=== PATIENT | female | born 1985 ===

== ENCOUNTER 2018-03-12 20:58 | Emergency (ER) | payer MEDICAID, SELFPAY ==
[2018-03-12 21:13] VITALS: BP 109/73; PULSE 91; RESP 18; TEMP 36.8; O2SAT 97
--- NOTE | 2018-03-12 21:20 | W.ED.GENAD ---
Discharge Plan Disposition Patient Disposition: HOME Condition: Stable Discharge Details Chief Complaint: Sorethroat Clinical Impression: Acute streptococcal pharyngitis Primary Care Provider: Unknown,Unknown ED Provider: Nikolai Ruth Home Meds and New Rx's Prescriptions: New amoxicillin 500 mg capsule 500 mg PO BID Qty: 19 RF: 0 Discharge Instructions Instructions: Pharyngitis (ED) Additional Instructions: Please take antibiotic as prescribed and until fully gone. Return to the emergency department for any new or significant domes of the [place] with primary care provider for reassessment as needed. Stand Alone Forms: Work Release Referrals: Primary Care Provider [Outside] (As needed for reassessment) Discharge Data Discharge Date/Time-TO BE ENTERED AT DEPARTURE: 03/12/18 22:03 Medical Decision Making Patient presenting the emergency department for chief complaint of sore throat, earache, sinus pressure. Patient states symptoms started 3 days ago. Patient's daughter was diagnosed with strep throat last week and she is concerned about having similar symptoms. She does state some fever and chills but denies any cough or runny nose. Physical exam does show some tonsillary erythema, mild hypertrophy, and left-sided exudates. Patient has some clear fluid present behind right TM otherwise exam is unremarkable. Patient has no signs of meningitis, peritonsillar or retropharyngeal abscess, airway is patent no other emergent findings noted at this time. patient had a rapid strep testing which was performed and returned positive result. Did discuss with patient risk versus benefit of antibiotic therapy which at this time we agreed upon antibiotics. Patient placed on amoxicillin 500 mg twice daily for 10 days. Patient encouraged to return for any new or worsening symptoms otherwise follow-up with primary care as needed for reassessment. After discussion of diagnosis and plan of care patient has no further needs, questions, or concerns and states clear understanding to return to the emergency department for any worsening symptoms. HPI General Mode of arrival: ambulatory. Date/Time Provider Initiated Documentation: 03/12/18 21:03. Limitations to Documentation: no limitations. Information obtained by: patient and RN notes reviewed. History of Present Illness 32 year old F presents to the emergency department with the chief complaint of Sore throat, described as moderate, with intensity rated at 6. Quality is described as aching and other (Generalized body), and is localized to the mouth (Sore Throat). Patient started experiencing this day(s) (3) and it has been constant. No relieving factors improve symptom(s), No exacerbating factors reported . Patient did receive the following treatments prior to arrival, other ([id number]-[id number] Tylenol cold) Related Data Home Medications Medication Instructions Recorded Confirmed amoxicillin 500 mg PO BID #19 cap 03/12/18 Previous Rx's Medication Instructions Recorded amoxicillin 500 mg PO BID #19 cap 03/12/18 Allergies Allergy/AdvReac Type Severity Reaction Status Date / Time No Known Allergies Allergy Unverified 03/12/18 21:26 Review of Systems Constitutional Reports chills, Reports fever(s), Denies headache(s) and Reports malaise ENT Reports as per HPI, Denies change in voice, Denies dysphagia, Reports otalgia, Denies headache(s), Denies lip swelling, Reports nasal congestion, Denies nasal discharge, Reports odynophagia, Reports sinus pressure, Reports sore throat, Denies throat swelling and Denies tongue swelling Cardiovascular Denies chest pain Respiratory Denies chest congestion and Denies cough Gastrointestinal Denies dysphagia and Reports odynophagia Neurologic Denies headache(s) Allergic/Immunologic Denies lip swelling, Denies throat swelling and Denies tongue swelling [facility] Social History Smoking/Tobacco Use Status: Current every day Exam Const General: cooperative, healthy appearing, comfortable, no acute distress and not ill appearing Orientation: alert, awake and oriented x3 HENMT Head: normal to inspection and normocephalic Ears: hearing grossly normal bilaterally, external ears normal, TM normal on the left, mastoids normal and TM abnormal with fluid behind the TM on the right (clear) and with loss of landmarks on the right General nose exam: external nose normal and nares normal Face and sinus: normal facial exam and sinuses nontender Mouth: oral mucosae normal, lip normal, tongue normal, no audible dysphonia, no drooling and no trismus Throat: uvula midline, abnormal tonsil on the left exudates and bilaterally erythema and hypertrophy 1+ and no peritonsillar masses Neck Neck: normal visual inspection, full ROM, no lymphadenopathy and no meningeal signs Resp Effort & Inspection: normal respiratory effort, able to speak in complete sentences and no stridor Auscultation: clear to auscultation bilaterally Cardio Rate: regular rate Rhythm: regular rhythm Heart Sounds: S1 normal and S2 normal Skin General skin exam: no rashes or lesions noted
--- NOTE | 2018-03-12 21:26 | ED.GENADUL_ITS ---
Discharge Plan Disposition Patient Disposition: HOME Condition: Stable Discharge Details Chief Complaint: Sorethroat Clinical Impression: Acute streptococcal pharyngitis Primary Care Provider: Unknown,Unknown ED Provider: Nikolai Ruth Home Meds and New Rx's Prescriptions: New amoxicillin 500 mg capsule 500 mg PO BID Qty: 19 RF: 0 Discharge Instructions Instructions: Pharyngitis (ED) Additional Instructions: Please take antibiotic as prescribed and until fully gone. Return to the emergency department for any new or significant domes of the [place] with primary care provider for reassessment as needed. Stand Alone Forms: Work Release Referrals: Primary Care Provider [Outside] (As needed for reassessment) Discharge Data Discharge Date/Time-TO BE ENTERED AT DEPARTURE: 03/12/18 22:03 Medical Decision Making Patient presenting the emergency department for chief complaint of sore throat, earache, sinus pressure. Patient states symptoms started 3 days ago. Patient's daughter was diagnosed with strep throat last week and she is concerned about having similar symptoms. She does state some fever and chills but denies any cough or runny nose. Physical exam does show some tonsillary erythema, mild hypertrophy, and left-sided exudates. Patient has some clear fluid present be hind right TM otherwise exam is unremarkable. Patient has no signs of meningitis, peritonsillar or retropharyngeal abscess, airway is patent no other emergent findings noted at this time. patient had a rapid strep testing which was performed and returned positive result. Did discuss with patient risk versus benefit of antibiotic therapy which at this time we agreed upon antibiotics. Patient placed on amoxicillin 500 mg twice daily for 10 days. Patient encouraged to return for any new or worsening symptoms otherwise follow- up with primary care as needed for reassessment. After discussion of diagnosis and plan of care patient has no further needs, questions, or concerns and states clear understanding to return to the emergency department for any worsening symptoms. HPI General Mode of arrival: ambulatory . Date/Time Provider Initiated Documentation: 03/12/18 21:03 . Limitations to Documentation: no limitations . Information obtained by: patient and RN notes reviewed . History of Present Illness 32 year old F presents to the emergency department with the chief complaint of Sore throat, described as moderate, with intensity rated at 6. Quality is described as aching and other (Generalized body), and is localized to the mouth (Sore Throat). Patient started experiencing this day(s) (3) and it has been constant. No relieving factors improve symptom(s), No exacerbating factors reported . Patient did receive the following treatments prior to arrival, other (Atja-tji-qpfyaab Tylenol cold) Related Data Home Medications Medication Instructions Recorded Confirmed amoxicillin 500 mg PO BID #19 cap 03/12/18 Previous Rx's Medication Instructions Recorded amoxicillin 500 mg PO BID #19 cap 03/12/18 Allergies Allergy/AdvReac Type Severity Reaction Status Date / Time No Known Allergies Allergy Unverified 03/12/18 21:26 Review of Systems Constitutional Reports chills, Reports fever(s), Denies headache(s) and Reports malaise ENT Reports as per HPI, Denies change in voice, Denies dysphagia, Reports otalgia, Denies headache(s), Denies lip swelling, Reports nasal congestion, Denies nasal discharge, Reports odynophagia, Reports sinus pressure, Reports sore throat, Denies throat swelling and Denies tongue swelling Cardiovascular Denies chest pain Respiratory Denies chest congestion and Denies cough Gastrointestinal Denies dysphagia and Reports odynophagia Neurologic Denies headache(s) Allergic/Immunologic Denies lip swelling, Denies throat swelling and Denies tongue swelling [facility] Social History Smoking/Tobacco Use Status: Current every day Exam Const General: cooperative, healthy appearing, comfortable, no acute distress and not ill appearing Orientation: alert, awake and oriented x3 HENMT Head: normal to inspection and normocephalic Ears: hearing grossly normal bilaterally, external ears normal, TM normal on the left, mastoids normal and TM abnormal with fluid behind the TM on the right (clear) and with loss of landmarks on the right General nose exam: external nose normal and nares normal Face and sinus: normal facial exam and sinuses nontender Mouth: oral mucosae normal, lip normal, tongue normal, no audible dysphonia, no drooling and no trismus Throat: uvula midline, abnormal tonsil on the left exudates and bilaterally erythema and hypertrophy 1+ and no peritonsillar masses Neck Neck: normal visual inspection, full ROM, no lymphadenopathy and no meningeal signs Resp Effort & Inspection: normal respiratory effort, able to speak in complete sentences and no stridor Auscultation: clear to auscultation bilaterally Cardio Rate: regular rate Rhythm: regular rhythm Heart Sounds: S1 normal and S2 normal Skin General skin exam: no rashes or lesions noted
[2018-03-12] MEDS: Amoxicillin 500 MG CAP PO (21:59)
== END 2018-03-12 22:03 | disposition home or self-care (01) ==
PROVIDERS: Emergency Provider Nurse Practitioner Family
DX: J02.0 Streptococcal pharyngitis (principal)
CPT/HCPCS: 87880; 99283

== ENCOUNTER → 2023-09-22 01:41 | Outpatient (CLI) | payer MEDICAID, SELFPAY ==
--- NOTE | 2023-09-22 | DI.MRI_ITS ---
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 TECHNIQUE: Multiplanar multisequence MRI of the Lumbar spine was performed. COMPARISON: No exams were available for comparison FINDINGS: Bones: The last intervertebral disc space is designated the L5/S1 level for the numbering purpose of this ex amination. The vertebral body heights are well maintained. Alignment: Unremarkable. The marrow signal characteristics are unremarkable. Cord: The conus tip ends at the T12 level. It is of normal size and signal intensity. T12-L1: No focal disc herniation is present. No central spinal canal stenosis.No neural foraminal st enosis. L1-2: No focal disc herniation is present. No central spinal canal stenosis.No neural foraminal sten osis. L2-3: No focal disc herniation is present. No central spinal canal stenosis.No neural foraminal jude nosis. L3-4: No focal disc herniation is present. No central spinal canal stenosis.No neural foraminal jude nosis. L4-5:Disc height is normal. Mild overall disc bulging and disc desiccation. Focal left foraminal an nular tear which may contact the nerve root. No central spinal canal stenosis.No neural foraminal st enosis. L5-S1: No focal disc herniation is present. No central spinal canal stenosis.No neural foraminal st enosis. The visualized SI joints and sacrum are unremarkable. Soft tissues: The paraspinal soft tissues are unremarkable. IMPRESSION: Small left-sided foraminal annular tear L4-5 which may contact the nerve root. Exam is otherwise un remarkable. DATA REPOSITORY:
== END ==
PROVIDERS: PCP Nurse Practitioner Family; Visit Provider Physician Assistant
DX: M54.42 Lumbago with sciatica, left side (principal); G89.29 Other chronic pain; M51.A1 Intervertebral annulus fibrosus defect, small, lumbar region
CPT/HCPCS: 72148

== ENCOUNTER 2025-01-30 11:07 | Outpatient (CLI) | payer MEDICAID, SELFPAY ==
--- NOTE | 2025-01-30 10:30 | DI.RAD_ITS ---
Exam(s) XR WRIST LT COMPLETE EXAM: XR WRIST LT COMPLETE CLINICAL HISTORY: left wrist pain. TECHNIQUE: 2D digital imaging was performed. Three views. COMPARISON: No exams were available for comparison FINDINGS: BONES: No acute fracture is present. No bony destructive lesion is seen. Bones are normally mineralized. JOINTS: The carpal bones are normally aligned. Are no significant degenerative changes. SOFT TISSUE: Normal. IMPRESSION: Unremarkable radiographs of the left wrist. DATA REPOSITORY: RADIATION DOSE DELIVERED:
== END 2025-01-30 11:08 | disposition home or self-care (01) ==
LOC: DIORS 11:08
PROVIDERS: PCP Nurse Practitioner Family; Visit Provider Physician Assistant
DX: M25.532 Pain in left wrist (principal)
CPT/HCPCS: 73110

== ENCOUNTER → 2025-02-24 01:28 | Outpatient (CLI) | payer MEDICAID, SELFPAY ==
--- NOTE | 2025-02-24 06:45 | DI.MRI_ITS ---
Exam(s) MR UPPER JOINT LT WO EXAM: MR UPPER JOINT LT WO CLINICAL HISTORY: PAIN,lt wrist injury,[id number]. TECHNIQUE: Multiplanar multisequence MRI was performed. COMPARISON: None. FINDINGS: BONES: There are no fractures, dislocation, nor significant ulnar variance. However, there is some intraosseous edema in the distal ulna and signal abnormality within the triangular fibrocartilage just medial to the ulnar styloid which is consistent with tear of the TFCC this level. There is no signi ficant intraosseous signal abnormality in the distal radius nor within the scaphoid. There is a subarticular cyst in the lateral aspect of the distal lunate which measures 2 x 2 x 4 mm and there is some mild edema in the lunate. There is no signal abnormality in the triquetrum nor in the pisiform nor abnormal intraosseous signal in the distal carpal row bones, including the hook of the hamate. There are few focal small benign-appearing cysts in the proximal half of the thumb metacarpal, these not immediately subarticular and there are minimal if any significant findings at the 1st carpometacarpal joint. There is no signal abnormality in the visualized proximal half of the other metacarpals. JOINTS/LIGAMENTS: Mild increased fluid in the lateral aspect of the radiocarpal joint as well as within the distal radioulnar joint and at the articulation between the pisiform and triquetrum all. Scapholunate distance is normal and there is no evidence of tear of the scapholunate ligament. The lunotriquetral ligament is also intact. TENDONS: Extensor tendons: On the medial aspect of the wrist there is focal signal abnormality and mild thickening within the extensor or carpi ulnaris tendon adjacent to the ulnar styloid, consistent with focal tendinitis. There is no full-thickness tear of this tendon nor prominent tenosynovitis. There is mild tenosynovitis of the extensor or carpi radialis longus and brevis tendons but without evidence of tendinitis nor tears of these tendons. Flexor tendons and carpal tunnel tendons: Unremarkable. No tendinitis nor tenosynovitis. Median nerve within the carpal tunnel appears unremarkable. TRIANGULAR FIBROCARTILAGE: As described above, there is signal abnormality in the triangular fibrocartilage at its attachment to the ulnar styloid. Consistent with partial tearing at this level. IMPRESSION: 1. The main findings are in the medial aspect of the wrist where there is focal tendinitis signal in the extensor carpi ulnaris tendon adjacent to the ulnar styloid and there is also mild intraosseous bone edema in the adjacent ulnar styloid. There is also signal abnormality in the adjacent triangular fibrocartilage at its attachment to the ulnar styloid, consistent with partial tearing and there is a small amount of increased fluid in the distal radioulnar joint. 2. Other findings as above. DATA REPOSITORY:
== END ==
LOC: DI 01:28
PROVIDERS: PCP Nurse Practitioner Family; Visit Provider Student in an Organized Health Care Education/Training Program
DX: S69.92XA Unspecified injury of left wrist, hand and finger(s), initial encounter (principal)
CPT/HCPCS: 73221